=== PATIENT | female | born 1940 | race Caucasian/White ===

== ENCOUNTER 2017-06-19 11:48 | Outpatient (CLI) | payer MEDICARE ==
--- NOTE | 2017-06-19 18:11 | MRI ---
MRI LUMBAR SPINE WITHOUT CONTRAST: Date: 06/19/17 HISTORY: Chronic back pain radiating down both front hips and legs. Gait disturbance. Myelopathy. COMPARISON: None. TECHNIQUE: Lumbar spine MRI is performed without intravenous Gadolinium administration. Multisequential, multipl cally imaging is performed. FINDINGS: There is a chronic end plate deformity along the inferior aspect of L1. There is 6.3 mm anterolisthes is of L4 upon L5. There is appropriate T1 marrow signal intensity in the remaining lumbar vertebra. N o evidence of significant STIR hyperintensity to suggest edema or ligamentous injury. Symmetric signal intensity of the psoas muscles. Appropriate signal intensity of the visualized solid organs. Conus medullaris terminates at the upper aspect of L1. T12-L1: No high grade central canal stenosis or high grade foraminal narrowing. L1-L2: No significant posterior disc abnormality. No significant central canal stenosis. Moderate right and left foraminal narrowing. L2-L3: Disc desiccation with mild loss of disc space height. Generalized disc bulge, ligamentum flavum thick ening, and facet hypertrophy result in mild central canal stenosis. Disc material does abut, but does not obscure the traversing right L3 nerve root. Mild right and left neural foraminal narrowing. L3-L4: Disc desiccation with generalized disc bulge, ligamentum flavum thickening, and facet hypertrophy. Th ere is moderate central canal stenosis. Moderate narrowing of the right subarticular zone with partia l obscuration of the traversing right L5 nerve root. Disc material abuts, but does not obscure [place] left L4 nerve root. Moderate right and mild to moderate left foraminal narrowing. L4-L5: Disc desiccation with mild loss of disc space height. Generalized disc bulge, ligamentum flavum thick ening, and facet hypertrophy result in severe central canal stenosis. Moderate right and mild left fo raminal narrowing. L5-S1: Disc desiccation without significant loss of disc space height. No significant central canal stenosis . There is bilateral facet hypertrophy. Neural foramina are patent bilaterally. IMPRESSION: Degenerative changes of the lumbar spine as above. [ POS: [facility]
--- NOTE | 2017-06-19 18:13 | MRI ---
EXAM: CERVICAL SPINE MRI WITHOUT CONTRAST 06/19/17 HISTORY: Unsteady gait. Cervical spondylosis with myelopathy. COMPARISON: None. TECHNIQUE: Cervical spine MRI is performed without intravenous gadolinium administration. Multisequential, multi planar imaging is performed. FINDINGS: There is appropriate T1 marrow signal intensity of the cervical vertebrae. Cervical spine vertebral b sonu height is maintained. No fracture. 2.1 mm of anterolisthesis of C4 upon C5, 1 mm retrolisthesis o f C5 upon C6 and 1 mm retrolisthesis of C6 upon C7. There are type II Modic changes at the C5-C6 disc space. There is a T2 hyperintense focus at the level of the pineal gland, incompletely evaluated. Dedicated brain MRI is recommended. There appears to be atrophy in the visualized brain parenchyma. C2-C3: No significant disc osteophyte complex. No significant central canal stenosis. Foramina are pa tent. C3-C4: There is a central/left paracentral disc osteophyte complex that abuts the thecal sac. Mild ce ntral canal stenosis. Degenerative change of the bilateral uncovertebral joints and bilateral facet h ypertrophy result in mild bilateral foraminal narrowing. C4-C5: There is a broad based osteophyte complex with a left paracentral component. There is mild amelia tral canal stenosis. No mass effect upon the cervical cord. Right and left neural foramina are mildly narrowed due to degenerative changes of the uncovertebral joint and facet hypertrophy (left greater than right). C5-C6: Broad based disc osteophyte complex abuts the thecal sac. There is a right paracentral compone nt. The right paracentral subarachnoid space is effaced. Minimal mass effect upon the right hemicord. No T2 hyperintensity in the cord. Overall mild to moderate central canal stenosis. Severe right fora pham narrowing due to degenerative change of the uncovertebral joint and to a lesser extent facet hy pertrophy. Moderate left foraminal narrowing due to degenerative change of the uncovertebral joint. C6-C7: Disc osteophyte complex abuts the thecal sac. Mild central canal stenosis. Mild right and mode rate left foraminal narrowing. C7-T1: There is 2.8 mm anterolisthesis of C7 upon T1. No high grade central canal stenosis. Mild bila teral foraminal narrowing. IMPRESSION: 1. Degenerative changes in the cervical spine as above. 2. 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 Pre and post contrast brain MRI is recommended. Code T POS: [facility]
== END 2017-06-19 11:49 | disposition home or self-care (01) ==
LOC: MRI 11:48 → SCSMRI 11:49
PROVIDERS: ATTEND Neurological Surgery
DX: M47.12 Other spondylosis with myelopathy, cervical region (principal); M47.16 Other spondylosis with myelopathy, lumbar region
CPT/HCPCS: 72141; 72148

== ENCOUNTER 2017-10-03 09:11 | Outpatient (CLI) | payer MEDICARE ==
[2017-10-03] MEDS ORDERED: Iopamidol 370 76% 100 ML VIAL ONE (16:29)
== END 2017-10-03 09:12 | disposition home or self-care (01) ==
LOC: BICCT 09:11
PROVIDERS: ATTEND Internal Medicine Hematology & Oncology
DX: R91.1 Solitary pulmonary nodule (principal); K44.9 Diaphragmatic hernia without obstruction or gangrene
CPT/HCPCS: 71260

== ENCOUNTER 2018-06-10 08:56 | Outpatient (CLI) | payer MEDICARE ==
[2018-06-10] MEDS ORDERED: Iopamidol 370 76% 100 ML VIAL ONE (11:00)
--- NOTE | 2018-06-10 12:43 | CT ---
CT CHEST WITH CONTRAST: COMPARISON: Reference made to a prior CT from [facility] from 10/03/2017, on which the patient is labeled as Krystal Cox. Note is made that the comparison exam contains a different first name for the patient, although the s steffany date. This discrepancy in patient names, for confirmation, prior to interpretation, with t he comparison exam, was confirmed with the patient's physician, Damion Cool M.D., who did confi rm the patient has been entered as both Karlene Cox, as well as Krystal Cox. FINDINGS: The previously documented ill-defined, nodular density at the posterior aspect of the right upper lob e is redemonstrated. This was previously measured at 1.9 cm transverse, on the September 2017 exam, and currently, in a similar location and dimension, this finding measures 1.8 cm, grossly stable. There has been development of a hypodense nodule, measuring 2.2 cm, of the right hilar region, which is int erposed between segmental right upper lobe bronchi. There is a noncalcified, subpleural, round, 6 mm nodule at the posterior left upper lobe, new. In addition, there are a few areas of subpleural nodul arity of the left hemithorax. There is a moderate sized hiatal hernia. No effusion or pneumothorax. Evidence of prior cholecystec ashley. The osseous structures reveal degenerative change. IMPRESSION: 1. Grossly stable size of ill defined, nodular density of the posterior aspect of the right upper lo be. 2. Newly developed dominant, 2.2 cm nodule of the right hilum and an additional newly developed, 6 m m, subpleural left lower lobe pulmonary nodule. POS: [facility]
== END 2018-06-10 08:57 | disposition home or self-care (01) ==
LOC: CT 08:56
PROVIDERS: ATTEND Internal Medicine Hematology & Oncology
DX: R91.8 Other nonspecific abnormal finding of lung field (principal); J98.4 Other disorders of lung
CPT/HCPCS: 71260; 82565